=== PATIENT | male | born 1985 | race Caucasian/White ===

== ENCOUNTER 2016-08-30 21:00 | Emergency (ER) | payer OTHER ==
[2016-08-30 21:10] VITALS: RESP 16
[2016-08-30 21:33] LABS: % IMMATURE GRANULYOCYTES 0.7 % (0.0-1.1); ABSOLUTE IMMATURE GRANULOCYTES 0.08 10^3/uL (0.00-0.10); ADD DIFF? NO; ADD MORPH? NO; ADD SCAN? NO; ATYPICAL LYMPHOCYTE FLAG 20 (0-99); FRAGMENT RBC FLAG 0 (0-99); HEMATOCRIT 40.3 % (40.0-51.0); HEMOGLOBIN 13.8 g/dL (13.7-17.5); LEFT SHIFT FLG 0 (0-99); LIPEMIA HEMOLYSIS FLAG 90 (0-99); MEAN CELL HEMOGLOBIN 29.5 pg (27.9-34.1); MEAN CELL HEMOGLOBIN CONCENTR. 34.2 g/dL (32.4-36.7); MEAN CELL VOLUME 86.1 fL (81.5-99.8); MEAN PLATELET VOLUME 9.5 fL (8.7-11.7); PLATELET CLUMPS FLAG 0 (0-99); PLATELET COUNT 296 10^3/uL (150-400); RED BLOOD CELL COUNT 4.68 10^6/uL (4.40-6.38); RED CELL DISTRIBUTION WIDTH 13.2 % (11.5-15.2)
[2016-08-30 21:46] LABS: ALANINE AMINOTRANSFERASE 45 IU/L (21-72); ALBUMIN 3.8 g/dL (3.5-5.0); ALKALINE PHOSPHATASE 44 IU/L (38-126); ANION GAP 11 mEq/L (8-16); ASPARTATE AMINOTRANSFERASE 19 IU/L (17-59); BILIRUBIN,TOTAL 0.3 mg/dL (0.1-1.4); BILIRUBIN-CONJUGATED 0.2 mg/dL (0.0-0.5); BILIRUBIN-UNCONJUGATED 0.1 mg/dL (0.0-1.1); CARBON DIOXIDE 27 mEq/l (22-31); CHLORIDE 102 mEq/L (97-110); CREATININE 0.6 mg/dL (0.7-1.3); GLOMERULAR FILTRATION RATE > 60; GLUCOSE 84 mg/dL (70-100); POTASSIUM 3.6 mEq/L (3.5-5.2); SODIUM 140 mEq/L (134-144); TOTAL PROTEIN 6.4 g/dL (6.3-8.2)
[2016-08-30] MEDS ORDERED: IOPAMIDOL (ISOVUE-300) 100 ML BTL IV ONE (22:15)
[2016-08-30 22:22] LABS: COLOR YELLOW; LEUKOCYTE ESTERASE,URINE NEGATIVE (NEGATIVE); NITRITE,URINE NEGATIVE (NEGATIVE)
[2016-08-30 22:28] LABS: MUCUS TRACE /lpf (NONE-1+)
[2016-08-30 22:30] LABS: WBC,URINE NONE SEEN /hpf (0-3)
--- NOTE | 2016-08-30 22:40 | EDPHY ---
H & P Stated Complaint: R groin pain Time Seen by Provider: 08/30/16 21:41 HPI/ROS: CHIEF COMPLAINT: Right lower quadrant pain HISTORY OF PRESENT ILLNESS: 30-year-old male presents emergency department from [facility] complaining of right lower quadrant pain that started tonight while sitting down. Patient reports pain is sharp in nature, worse with movement. He states it radiates to his periumbilical region. Pain is constant. Patient denies nausea, vomiting. He denies back pain. He denies pain or swelling in his scrotum, no burning with urination, urinary frequency or urgency, no penile discharge. He denies previous pain similar to this. Last bowel movement was today and normal, no diarrhea. REVIEW OF SYSTEMS: A comprehensive 10 point review of systems is otherwise negative aside from elements mentioned in the history of present illness. Source: Patient Exam Limitations: No limitations - Personal History Current Tetanus/Diphtheria Vaccine: Yes Current Tetanus Diphtheria and Acellular Pertussis (TDAP): Yes - Medical/Surgical History Hx Asthma: Yes Hx Chronic Respiratory Disease: No Hx Diabetes: No Hx Cardiac Disease: No Hx Renal Disease: No Hx Cirrhosis: No Hx Alcoholism: No Hx HIV/AIDS: No Hx Splenectomy or Spleen Trauma: No Other PMH: asthma - Social History Smoking Status: Never smoked - Physical Exam Exam: Physical Exam Gen: Alert and Oriented, NAD HEENT: PERRL, moist mucous membranes NECK: no meningismus CV: regular rate and regular rhythm PULM: CTAB, no wheezes ABDOMEN: soft, mild periumbilical and right lower quadrant tenderness to palpation, no peritoneal signs, no rebound tenderness, negative Rovsing's : Patient declines BACK: No CVA tenderness NEURO: Neurologically grossly intact EXTREMITIES: normal appearing SKIN: no rash or break in skin on exposed skin PSYCH: answers questions appropriately. Constitutional: Initial Vital Signs Temperature (C) 36.5 C 08/30/16 21:07 Heart Rate 72 08/30/16 21:07 Respiratory Rate 16 08/30/16 21:07 Blood Pressure 130/91 H 08/30/16 21:07 O2 Sat (%) 98 08/30/16 21:07 O2 Delivery Mode Room Air Allergies/Adverse Reactions: No Known Allergies Allergy (Unverified 08/30/16 21:07) Home Medications: Medication Instructions Recorded NK [No Known Home Meds] 08/30/16 Medical Decision Making ED Course/Re-evaluation: IV established, CBC, chemistry panel, urinalysis obtained. CT abdomen pelvis with IV contrast ordered to rule out appendicitis. CBC shows a mildly elevated white blood cell count at 11,000, chemistry panel is normal, urinalysis shows 5-10 RBCs, no WBCs. CT abdomen pelvis shows a normal appendix, no renal or ureteral calculi, constipation. Patient will be discharged back to [facility], reexamination of his abdomen continues with no peritoneal signs. I recommended using MiraLax daily for the next 7 days , drinking plenty of water, eating fiber. I have given return precautions for continued pain, worsening pain, new symptoms or concerns. Differential Diagnosis: The differential diagnosis for the patient's abdominal pain included but was not limited to appendicitis, cholecystitis, hernias, testicular torsion, gastritis, and urinary tract infection. - Data Points Laboratory Results: Laboratory Results 08/30/16 21:17 08/30/16 21:17 Microbiology Results: MICROBIOLOGY 08/30/16 22:12 Urine,Clean Catch Urine Culture - Preliminary Departure - Departure Disposition: Home, Routine, Self-Care Clinical Impression: Abdominal pain in male Constipation Qualifiers: Constipation type: unspecified constipation type Qualified Code(s): K59.00 - Constipation, unspecified Condition: Good Instructions: Constipation (ED), Abdominal Pain (ED) Additional Instructions: Take 17 g of MiraLax daily for 7 days, drink plenty of water, eat more fiber. Follow up with the primary care doctor for continued symptoms, return to the emergency department for worsening symptoms, new symptoms or concerns. Patient is medically cleared for [facility] Referrals: Anaid Pozo MD [Medical Doctor] - As per Instructions (Primary care doctor on-call)
[2016-08-30 23:14] VITALS: BP 115/63; PULSE 64; TEMP 97.9; O2SAT 96
== END 2016-08-30 23:14 | disposition home or self-care (01) ==
DX: K59.00 Constipation, unspecified (principal); J45.909 Unspecified asthma, uncomplicated
CPT/HCPCS: Q9967